=== PATIENT | male | born 1950 | race Caucasian/White ===

== ENCOUNTER 2025-02-11 05:28 | Emergency (ER) | payer MEDICARE, BC, SELFPAY ==
[2025-02-11 05:36] VITALS: BP 180/106
[2025-02-11 06:10] VITALS: BP 176/88
[2025-02-11 06:20] VITALS: BMI 34.2
[2025-02-11 06:30] LABS: Hematocrit 42.9 % (39.0-52.0); Hemoglobin 15.5 g/dL (13.0-18.0); Mean Corp Hgb Conc. 36.1 g/dL (33.0-37.0); Mean Corpuscular Volume 85.1 fL (80.0-94.0); Nucleated Red Blood Cells % 0 % (-); Platelet Count 185 10^3/uL (130-400); Red Cell Dist. Width 11.7 % (11.5-14.5)
[2025-02-11 06:46] LABS: ALT (SGPT) 21 U/L (0-50); AST (SGOT) 20 U/L (17-59); Albumin 4.7 g/dl (3.5-5.0); Alkaline Phosphatase 79 U/L (38-126); Blood Urea Nitrogen 30 mg/dl (9-20); Calcium 9.9 mg/dl (8.4-10.2); Carbon Dioxide 24 mmol/L (22-30); Chloride 103 mmol/L (98-107); Estimated Creatinine Clearance 64 ml/min; Glucose 275 mg/dl (70-99); Lipase 96 U/L (23-300); Potassium 3.6 mmol/L (3.5-5.1); Sodium 135 mmol/L (135-145); Total Protein 6.9 g/dl (6.3-8.2); eGFR > 60.00
[2025-02-11 07:00] VITALS: BP 178/96
--- NOTE | 2025-02-11 07:00 | ED.GENMED ---
History of Present Illness
General
Chief Complaint: Abdominal Symptoms
Source: patient
Exam Limitations: none
Time Seen by Provider: 02/11/25 06:34
Nursing documentation reviewed up to this point in time: agreed with
History of Present Illness
History of Present Illness:
The patient is a 74-year-old man who reports that he ate a huge pork rib dinner yesterday at around 6 PM. Patient reports that he has been suffering severe nausea and pain in his upper abdomen ever since then. Patient reports he has not been
vomiting. He denies having a bowel movement since eating the meal. He denies fevers and chills. Patient reports severe pain in his upper mid abdomen. He denies chest pain and shortness of breath. He denies an abdominal surgical history.
Past History
Past History
ED Past Medical History: HTN
ED Past Surgical History: Other
Social History
Tobacco: Other
Alcohol: Other
Drug: None
Personal: Other
Living: other
Employment: Other
Family History
Family History: Other
Review of Systems
Review of Systems
Allergies reviewed?: Yes
All Other Systems: ROS reviewed and negative except as documented in HPI and ROS
Constitutional: Reports no symptoms
EENT: Reports no symptoms
Respiratory: Reports no symptoms
Cardiac: Reports no symptoms
ABD/GI: Reports abdominal pain and nausea
: Reports no symptoms
Musculoskeletal: Reports no symptoms
Skin: Reports no symptoms
Neurological: Reports no symptoms
Endocrine: Reports no symptoms
Hematologic/Lymphatic: Reports no symptoms
Psychiatric: Reports no symptoms
Phy Exam
Physical Exam
Physical Exam:
Physical Exam
General: No acute distress. Patient appears uncomfortable
Neck: supple. no meningeal signs. normal psoterior pharynx
Heart: s1/s2 regular rate and rhythm, no murmur. equal radial pulses.
Lungs: no acute respiratory distress. clear bilaterally
Abdomen: Normal bowel sounds. Epigastric tenderness. No rebound or guarding. No pulsatile mass
Neuro: alert and oriented. no focal neurological deficits
Skin: no rash
Psychiatric: well kept. interactive and cooperative
Extremities: no edema. no calf tenderness. negative homans. good distal pulses
Course
Orders/Labs/Results
Orders:
Orders
02/11/25 06:20
Complete Blood Count/With Diff Urgent
Comprehensive Metabolic Panel Urgent
Lipase Urgent
02/11/25 06:55
Electrocardiogram (*1) Urgent
Reason for Study: Abdominal Pain
EKG- Treatment ONCE
02/11/25 07:09
Morphine Sulfate 4 mg IV NOW STA
02/11/25 07:10
Ondansetron Injectable [Zofran] 4 mg IV NOW STA
02/11/25 07:14
CT Abd/pelvis W Iv Cont Urgent
Comment:
Reason For Exam: nausea, epig pain
02/11/25 08:09
US Abdomen Complete/Upper Urgent
Comment:
Reason For Exam: epig pain
02/11/25 08:12
Ketorolac [Toradol] 15 mg IV NOW STA
Abnormal Lab Results
02/11/25
06:20
WBC 14.7 H 10^3/uL
(4.8-10.8)
Abs Immat Gran (auto) 0.1 H 10^3/uL
(0-0.05)
Absolute Neuts (auto) 12.4 H 10^3/uL
(1.4-6.5)
Absolute Monos (auto) 0.9 H 10^3/uL
(0.1-0.6)
Immature Gran % 0.6 H %
(0-0.5)
Neutrophils % 84.3 H %
(42.2-75.2)
Lymphocytes % 8.4 L %
(20.5-51.1)
BUN 30 H mg/dl
(9-20)
Glucose 275 H mg/dl
(70-99)
02/11/25 06:20
02/11/25 06:20
Vital Signs
Initial and Last Documented VS:
Initial Vital Signs
Temp Pulse Resp BP Pulse Ox
98.8 F 84 20 180/106 97
02/11/25 05:36 02/11/25 05:36 02/11/25 05:36 02/11/25 05:36 02/11/25 05:36
Last Documented Vital Signs
Temp Pulse Resp BP Pulse Ox
98.8 F 79 17 161/63 93
02/11/25 05:36 02/11/25 10:30 02/11/25 10:30 02/11/25 08:06 02/11/25 10:30
MDM/Problems Addressed
Differential Diagnosis Includes:
Acute cholecystitis, acute pancreatitis, small bowel obstruction
MDM/Problems Addressed:
Patient presents with acute abdominal pain and nausea
Chronic conditions affecting care: HTN
Acute Exacerbation and/or Progression of Chronic Illness:
Patient is acutely hypertensive, likely due to discomfort.
*Radiology
Radiology exam reviewed: radiology read reviewed
*Pulse Oximetry
SaO2: 96
Oxygen Mode of Delivery: Room air
Patient hypoxic: no
Comment: 96% on room air
*EKG
Interpreted by ED Provider?: Yes
Interpretation: normal
Comparison EKG: no comparison EKG present
Rate: normal
Rhythm: sinus
[place]: normal axis
Interval: normal interval
QRS Pattern: normal QRS
Ischemia: no ischemia
*Bite Block Maker Interpretation
Rate: normal
Interpretation: normal
Rhythm: sinus
*Critical Care Note
Total Time (30-74mins, 75-104mins- exclusive of procedures): Not Applicable
Data Reviewed
Source: patient
Update Note
Update Note:
11:15 AM. Patient's imaging studies show gallstones without signs of acute cholecystitis. Patient reports his pain is so much better and he is happy to go home. Patient given crackers and manfred nereida. We will reassess him for another hour to make
sure his pain remains very low. If his pain intensifies again, we will reconsider admitting patient
12:00 PM patient reports his pain is still gone. He adamantly wants to go home. Patient understands that his pain could return with a fatty meal. He understands that if his pain is persistent or if he gets any fevers or chills, that he must come
back to the ED
ED Attending Note
-
Portions of this chart may have been created with voice recognition software.� Occasional wrong word or��sound alike� substitutions may have occurred due to the inherent limitations of voice recognition software.
Discharge Plan
Departure
Patient Disposition: Home (Routine Discharge)
Date of Disposition: 02/11/25
Time of Disposition: 11:57
Patient with high blood pressure during this ER visit?: Yes
Condition: Good
Covid-19: Not Applicable
Discharge Problem:
Colic, biliary
Instructions: Gallstones - ED discharge instructions, BLOOD PRESSURE
Referrals:
Trenton Glover DO [Family Provider]
Henry Lenz MD [Active, Surgical]
Activity Restrictions/Additional Instructions:
If your abdominal pain comes back, and becomes persistent, such as several hours long, or is associated with vomiting or fever, please come back to the emergency department.
If you experience bouts of pain and feel that it may be time to discuss getting your gallbladder removed, please follow-up with general surgery.
Interventions
Interventions:
*Risk Screen - Suicide Last Done: 02/11/25 05:36
*General Assessment Last Done: 02/11/25 05:36
*Neglect/Abuse Screening Last Done: 02/11/25 05:36
*ED- Fall Risk Assessment Last Done: 02/11/25 05:36
*ED COVID-19 Vaccine History Last Done: 02/11/25 05:36
YT-Cxptnz-Iszvkaszgs Assessment Last Done: 02/11/25 06:21
Discharge Date and Time
Print Language: SETSWANA
[2025-02-11] MEDS: MORPHINE SULFATE 4 MG IV (07:19)
[2025-02-11] MEDS: ZOFRAN 4 MG IV (07:20)
[2025-02-11 08:06] VITALS: BP 161/63
[2025-02-11] MEDS: TORADOL 15 MG IV (08:43)
[2025-02-11 11:56] VITALS: BP 163/68
[2025-02-11 13:08] VITALS: BP 163/68
== END 2025-02-11 12:30 | disposition home or self-care (01) ==
LOC: EMR 05:28
PROVIDERS: Emergency Medicine; EMERGENCY PHYSICIAN Emergency Medicine; FAMILY PHYSICIAN Internal Medicine
DX: K80.50 Calculus of bile duct without cholangitis or cholecystitis without obstruction (principal)
CPT/HCPCS: 99284; 96374; 96375; 74177; 76700; 80053; 83690; 85025; 93005; Q9967

== ENCOUNTER 2025-02-12 19:41 | Inpatient (IN) | payer MEDICARE, BC, SELFPAY ==
[2025-02-12 16:09] VITALS: BP 137/74
--- NOTE | 2025-02-12 17:43 | ED.GENMED ---
History of Present Illness
General
Chief Complaint: Abdominal Pain
Source: patient and family
Exam Limitations: none
Time Seen by Provider: 02/12/25 17:41
Nursing documentation reviewed up to this point in time: agreed with
History of Present Illness
History of Present Illness:
74-year-old male with known cholelithiasis who presents to the emergency department for evaluation of intractable upper abdominal pain, now with fever. Patient was seen in the emergency department yesterday where he was diagnosed with gallstones
however symptoms seemed to improve and he had no ultrasound findings indicating acute cholecystitis and he was discharged home. However�patient states in the middle the night he was woken again by extreme pain in his upper abdomen. He reports
constant pain since associated with nausea. He also had a temperature of 101F at home earlier today. He did take some Motrin.
Patient states he had a few sips of water, a boiled egg, and some oatmeal today.
He denies any chest pain, shortness of breath, dysuria.
Patient is on any blood thinners.
Past History
Past History
ED Past Medical History: HTN
ED Past Surgical History: Other
Social History
Tobacco: Other
Alcohol: Other
Drug: None
Personal: Other
Living: other
Employment: Other
Family History
Family History: Other
Review of Systems
Review of Systems
Allergies reviewed?: Yes
All Other Systems: ROS reviewed and negative except as documented in HPI and ROS
Phy Exam
Physical Exam
Physical Exam:
Vitals: Tachycardic, otherwise vital signs stable. Temp 100.1
General: Patient is in no acute distress
Skin: Warm and dry, no rashes or lesions
Head: Normocephalic, atraumatic
Eyes: Sclera nonicteric. EOMs intact. No nystagmus.
Throat: Protecting airway
Neck: Normal ROM, no cervical spine tenderness, no meningismus
Cardiac: Tachycardic, normal rhythm. No murmurs
Pulm: Normal respiratory effort, no wheezes, rales, rhonchi heard on exam
Abdomen: Mildly distended. Abdomen soft. Moderate tenderness in epigastric/right upper quadrant. Negative Mora sign. No tenderness in lower abdomen.
Extremities: No evidence of cyanosis or edema. Palpable DP pulses bilaterally
Neuro: AAOx3. Grossly intact.
Psychiatric: Normal affect.
Course
Orders/Labs/Results
Orders:
Orders
02/12/25 17:58
0.9% Sodium Chloride 1000 ml [Nss] 1,000 ml IV BOLUS
Ketorolac [Toradol] 15 mg IV NOW STA
Ondansetron Injectable [Zofran] 4 mg IV NOW STA
02/12/25 18:09
Comprehensive Metabolic Panel Urgent
Lipase Urgent
Blood Culture Q30M
FREDERIC Source: Blood/Venous
Specimen Description:
Blood Culture Q30M
FREDERIC Source: Blood/Venous
Specimen Description:
02/12/25 18:10
Complete Blood Count/With Diff Urgent
Lactic Acid Q4H
Comment: CANCEL 2nd LACTIC ACID IF 1st LACTIC ACID IS LESS THAN 2
02/12/25 18:33
Acetaminophen [Tylenol] 650 mg PO NOW STA
02/12/25 18:53
Piperacillin/Tazo 3.375 Gram [Zosyn] 3.375 gram in 50 ml IV NOW
02/12/25 19:06
HYDROmorphone [Dilaudid] 0.5 mg IV NOW STA
02/12/25 22:00
Lactic Acid Q4H
Comment: CANCEL 2nd LACTIC ACID IF 1st LACTIC ACID IS LESS THAN 2
Abnormal Lab Results
02/12/25 02/12/25
18:09 18:10
WBC 21.5 H 10^3/uL
(4.8-10.8)
Abs Immat Gran (auto) 0.1 H 10^3/uL
(0-0.05)
Absolute Neuts (auto) 17.9 H 10^3/uL
(1.4-6.5)
Absolute Monos (auto) 2.0 H 10^3/uL
(0.1-0.6)
Immature Gran % 0.7 H %
(0-0.5)
Neutrophils % 83.0 H %
(42.2-75.2)
Lymphocytes % 6.7 L %
(20.5-51.1)
Sodium 130 L mmol/L
(135-145)
Potassium 3.3 L mmol/L
(3.5-5.1)
Chloride 97 L mmol/L
(98-107)
Glucose 299 H mg/dl
(70-99)
Total Bilirubin 1.8 H mg/dl
(0.2-1.3)
02/12/25 18:10
02/12/25 18:09
Vital Signs
Initial and Last Documented VS:
Initial Vital Signs
Temp Pulse Resp BP Pulse Ox
100.1 F 118 16 137/74 96
02/12/25 16:09 02/12/25 16:09 02/12/25 16:09 02/12/25 16:09 02/12/25 16:09
Last Documented Vital Signs
Temp Pulse Resp BP Pulse Ox
100.6 F H 98 16 137/74 96
02/12/25 18:30 02/12/25 18:30 02/12/25 16:09 02/12/25 16:09 02/12/25 18:07
MDM/Problems Addressed
Differential Diagnosis Includes:
Not limited to: Acute cholecystitis, choledocholithiasis, biliary colic, cholangitis, sepsis, pancreatitis, etc.
MDM/Problems Addressed:
74-year-old male with known gallstones who presents with intractable upper abdominal pain now with fever. Patient discharged from the emergency department yesterday after suspected biliary colic however pain returned last night and he spiked a
fever this morning. No episodes of vomiting, chest pain, shortness of breath. Patient tachycardic on arrival with temp of 100.6F. Otherwise vital signs are stable. Physical exam as above. Patient overall well-appearing. Abdomen mildly
distended however soft. Tenderness noted in epigastric/right upper quadrant. No rebound tenderness or guarding. I did review labs and ultrasound that performed yesterday in the emergency department. Ultrasound shows cholelithiasis without any
evidence of acute cholecystitis. Given intractable pain and new onset fever�concern for acute cholecystitis. Will plan to redraw labs, check lactic and send blood cultures. Will treat pain and give IV fluids. Will closely monitor and reassess.
Update: Labs reviewed. White count of 21.5 which is increased from 14.5 yesterday. Chemistry reveals mild hyponatremia and hypokalemia with a mild elevation in total bilirubin to 1.8. Otherwise LFTs normal. Lactic acid normal. Physical exam and
lab work consistent with acute cholecystitis. Patient started on Zosyn in emergency department. Case discussed with general surgeon who does not feel repeat ultrasound indicated at this time. Per general surgery�plan will be to admit to medicine
with repeat labs in the a.m. and possible OR tomorrow. Patient excepted to hospitalist service in stable condition.
Chronic conditions affecting care:
Cholelithiasis
Acute Exacerbation and/or Progression of Chronic Illness:
Acute cholecystitis
*Pulse Oximetry
SaO2: 96
Oxygen Mode of Delivery: Room air
Patient hypoxic: no
*EKG
Interpreted by ED Provider?: NA
*It Security Administrator Interpretation
Rate: It Security Administrator- N/A
*Critical Care Note
Total Time (30-74mins, 75-104mins- exclusive of procedures): Not Applicable
Data Reviewed
Review of Other/Old Records Reveals: Labs (Labs performed yesterday 03/10/2025 which reveal leukocytosis however no transaminitis or elevation in total bilirubin.) and Radiology Studies (Ultrasound performed 02/11/2025 which reveals cholelithiasis
without evidence of acute cholecystitis)
Further Testing Considered But Not Given:
Considered repeat abdominal ultrasound however patient picture clinically consistent with acute cholecystitis�after discussion with general surgery do not feel indicated
Patient Management
Discussion with other providers: Hospitalist and [employer] Consultant (Case discussed with general surgery)
Escalation/DeEscalation of care consider admission/obs:
Admit for IV antibiotics, repeat labs, possible cholecystectomy with general surgery
ED Attending Note
-
Portions of this chart may have been created with voice recognition software.� Occasional wrong word or��sound alike� substitutions may have occurred due to the inherent limitations of voice recognition software.
Discharge Plan
Departure
Patient Disposition: Admit
Date of Disposition: 02/12/25
Time of Disposition: 18:53
Presentation/result/management discussed w/ accepting MD/DO: Hospitalist
Discharge Problem:
Acute cholecystitis
Prescriptions:
No Action
valsartan-hydrochlorothiazide 160-25 mg tablet
1 tab PO DAILY
ibuprofen [Advil] 200 mg Tablet
400 mg PO DAILYPRN PRN (Reason: mild pain)
Referrals:
Trenton Glover DO [Family Provider]
Interventions
Interventions:
*Risk Screen - Suicide Last Done: 02/12/25 16:09
*General Assessment Last Done: 02/12/25 16:09
*Neglect/Abuse Screening Last Done: 02/12/25 16:09
*ED- Fall Risk Assessment Last Done: 02/12/25 18:28
AG-Xckxta-Ynjhyupejc Assessment Last Done: 02/12/25 18:27
Discharge Date and Time
Print Language: [place]
[2025-02-12] MEDS: NSS 1000 IV (18:26)
[2025-02-12] MEDS: TORADOL 15 MG IV (18:26)
[2025-02-12 18:27] VITALS: BMI 28.4
[2025-02-12] MEDS: ZOFRAN 4 MG IV (18:27)
[2025-02-12 18:28] LABS: Hematocrit 44.6 % (39.0-52.0); Hemoglobin 16.3 g/dL (13.0-18.0); Mean Corp Hgb Conc. 36.5 g/dL (33.0-37.0); Mean Corpuscular Volume 83.1 fL (80.0-94.0); Nucleated Red Blood Cells % 0 % (-); Platelet Count 176 10^3/uL (130-400); Red Cell Dist. Width 11.9 % (11.5-14.5)
[2025-02-12 18:42] LABS: ALT (SGPT) 20 U/L (0-50); AST (SGOT) 18 U/L (17-59); Albumin 4.4 g/dl (3.5-5.0); Alkaline Phosphatase 62 U/L (38-126); Blood Urea Nitrogen 20 mg/dl (9-20); Calcium 9.6 mg/dl (8.4-10.2); Carbon Dioxide 24 mmol/L (22-30); Chloride 97 mmol/L (98-107); Estimated Creatinine Clearance 77 ml/min; Glucose 299 mg/dl (70-99); Lipase 49 U/L (23-300); Potassium 3.3 mmol/L (3.5-5.1); Sodium 130 mmol/L (135-145); Total Protein 6.7 g/dl (6.3-8.2); eGFR > 60.00
[2025-02-12] MEDS: TYLENOL 650 MG PO (19:27)
[2025-02-12] MEDS: DILAUDID 0.5 MG IV (19:27)
[2025-02-12] MEDS: ZOSYN 50 IV (19:27)
--- NOTE | 2025-02-12 19:31 | HPS.HSE ---
Family Physician
-
Family Physician: Trenton Glover
Chief Complaint
-
Abd Pain
History of Present Illness
Patient is a 74y M with PMH significant for hypertension who presents to ED complaining of abdominal pain. Patient states that he started with abdominal pain Saturday evening around 7:30. He had epigastric abdominal pain with nausea and no
vomiting. He presented to the ED early in the morning on . Evaluation at that time showed gallstones without fever, abnormal LFTs or imaging evidence of cholecystitis. Patient felt improved and returned to home.
Unfortunately his pain returned today and increased in severity. Patient returned to the ED for evaluation.
Today he is febrile to 100.6 and his bilirubin is increased at 1.8.
Medical History
Past Medical History
Past Medical History: Reports Other
Additional Past Medical History:
Hypertension
Diet-Controlled DM-II
Past Surgical History: Reports Other
Additional Past Surgical History:
Left Inguinal Herniorrhaphy
Social History
Tobacco: Former Smoker (Quit smoking 30 years ago. )
Alcohol: Occasional
Drug: None
Family History
Family History: Not pertinent
Allergies / Home Medications
Allergies reflects when Allergies were last updated in [facility].
Home Medications with original date entered in [facility]
Allergy/Medication List:
Allergies
Allergy/AdvReac Type Severity Reaction Status Date / Time
No Known Allergies Allergy Verified 02/12/25 16:09
Home Medications
ibuprofen 200 mg tablet (Advil) 400 mg PO DAILYPRN PRN mild pain 02/12/25
valsartan 160 mg-hydrochlorothiazide 25 mg tablet 1 tab PO DAILY 02/12/25
Review of Systems
-
History Source: Patient
A 12 point ROS was completed and negative except as noted: Yes
Constitutional: Denies Fever, Fatigue or Chills
Respiratory: Denies Cough or Trouble Breathing
Cardiac: Denies Chest Pain or Palpitations
Abdomen/GI: Reports Abdominal Pain and Nausea; Denies Vomiting, Diarrhea, Bloody Stools or Black Stools
: Denies Dysuria or Frequency
Musculoskeletal: Denies Joint Pain or Edema
Neurological: Denies Dizzy or Headache
Psych: Denies Depression or Anxiety
Physical Exam
Vital Signs
Vital Signs
Temp Pulse Resp BP Pulse Ox
100.6 F H 98 16 137/74 96
02/12/25 18:30 02/12/25 18:30 02/12/25 16:09 02/12/25 16:09 02/12/25 18:07
Physical Exam
General: Other (74y M in no acute distress.)
HEENT: Moist mucous membranes and PERRLA
Respiratory: Clear; No Wheezes, Rales or Rhonchi
Cardiac: S1/S2 and Regular Rhythm; No Murmur
GI: Other (Softly distended. Pos BS. Pos epigastric and RUQ tenderness.)
Musculoskeletal: No Clubbing, No Cyanosis and No Edema
Neuro: AO x 3
Laboratory Results
-
02/12/25 18:10
02/12/25 18:09
Laboratory Results
Lactic Acid 1.2 mmol/L (0.7-2.0) 02/12/25 18:10
Total Bilirubin 1.8 mg/dl (0.2-1.3) H 02/12/25 18:09
AST 18 U/L (17-59) 02/12/25 18:09
ALT 20 U/L (0-50) 02/12/25 18:09
Alkaline Phosphatase 62 U/L (38-126) 02/12/25 18:09
Lipase 49 U/L (23-300) 02/12/25 18:09
Impression/Plan
-
A/P: Patient is a 74y M with PMH significant for hypertension and DM-II who presents to ED complaining of abdominal pain.
Acute Calculous Cholecystitis
Sepsis secondary to the above
- Admit for further evaluation and treatment.
- Patient presents with fever, leukocytosis, tachycardia and imaging showing gallstones (02/11).
- Continue IV abx. IVFs, pain control, antiemetics.
- Surgery evaluation for additional recommendations / probable cholecystectomy.
- Follow for any new / worsening symptoms.
Hyponatremia
Hypokalemia
- Mild. Likely secondary to HCTZ.
- Hold / stop HCTZ.
- IVF replacement and follow for improvement.
Benign Hypertension
- Stable. Continue valsartan with holding parameters.
- Hold HCTZ acutely.
Diet-Controlled DM-II
- Stable. Not on any medications.
- Follow glucose and cover with SSI as needed.
- Update A1C.
DVT Prophylaxis: SCDs
Code Status: Full
[2025-02-12 20:50] VITALS: BP 112/54; BMI 33.2
--- NOTE | 2025-02-12 20:50 | PTCARENOTE ---
Patient arrived from ED to [address] [place] [address]. AAOx3, accompanied by daughter. Pt very pleasant and reports abdominal pain minimal at this time. VSS, plan of care explain to patient and daughter, all questions answered. Assessment on going.
[2025-02-12] MEDS: LR 1000 IV (21:08)
[2025-02-12 23:00] VITALS: BP 103/58
[2025-02-12 23:39] LABS: Glucose - Point of Care 211 mg/dl (70-99)
[2025-02-12] MEDS: NOVOLOG FLEXPEN-LOW RESISTANCE 300 UNITS SC (23:43)
[2025-02-13] VITALS (12 sets, daily range): BP systolic 0–139; BP diastolic 45–70
[2025-02-13] MEDS: ZOSYN 50 IV ×4 (01:54→20:14)
[2025-02-13 06:11] LABS: Glucose - Point of Care 172 mg/dl (70-99)
[2025-02-13] MEDS: NOVOLOG FLEXPEN-LOW RESISTANCE 300 UNITS SC (06:14)
[2025-02-13 07:05] LABS: Hematocrit 39.7 % (39.0-52.0); Hemoglobin 14.0 g/dL (13.0-18.0); Mean Corp Hgb Conc. 35.3 g/dL (33.0-37.0); Mean Corpuscular Volume 85.9 fL (80.0-94.0); Platelet Count 149 10^3/uL (130-400); Red Cell Dist. Width 11.9 % (11.5-14.5)
[2025-02-13 07:24] LABS: ALT (SGPT) 67 U/L (0-50); AST (SGOT) 53 U/L (17-59); Albumin 3.4 g/dl (3.5-5.0); Alkaline Phosphatase 70 U/L (38-126); Blood Urea Nitrogen 18 mg/dl (9-20); Calcium 8.7 mg/dl (8.4-10.2); Carbon Dioxide 27 mmol/L (22-30); Chloride 101 mmol/L (98-107); Estimated Creatinine Clearance 63 ml/min; Glucose 179 mg/dl (70-99); Potassium 3.2 mmol/L (3.5-5.1); Sodium 136 mmol/L (135-145); Total Protein 5.5 g/dl (6.3-8.2); eGFR > 60.00
--- NOTE | 2025-02-13 07:51 | CON.GS ---
Medical History
-
Chief Complaint: RUQ pain
History of Present Illness:
Patient is a 74 yo M with a PMH of obesity, HTN, diet-controlled diabetes, and s/p open LEFT inguinal hernia repair with mesh years ago. Mr. Milan initially presented to on 02/11/2025 with epigastric and RUQ abdominal pain. He reports that his
symptoms began acutely Saturday evening after having ribs. He was diagnosed with cholelithiasis. His symptoms improved and he opted for discharge with outpatient management. He represented to the ER on 02/12 with recurrent abdominal pain.
Currently he states that his pain is mildly improved but persistent in the epigastric and RUQ region. He denies any nausea or vomiting. Febrile. He denies any jaundice, pale stools, or tea colored urine. He denies any prior attacks of abdominal
pain or discomfort. He does states that he has had some reflux issues over the past several weeks. Family history notable for a daughter postcholecystectomy.
Past Medical History
Past Medical History: HTN and NIDDM
Past Surgical History: Hernia Repair (Open LEFT inguinal hernia)
Social History
Tobacco: Non-Smoker
Alcohol: Occasional
Drug: None
Family History
Family History: Other (Daughter cholecystectomy)
Allergies / Home Medications
Allergy/AdvReac Type Severity Reaction Status Date / Time
No Known Allergies Allergy Verified 02/12/25 16:09
�Medication �Instructions �Recorded �Confirmed �Type
ibuprofen 200 mg tablet (Advil) 400 mg PO DAILYPRN PRN mild pain 02/12/25 02/12/25 History
valsartan 160 1 tab PO DAILY Blood Pressure 02/12/25 02/12/25 History
mg-hydrochlorothiazide 25 mg tablet
Review of Systems
-
A 10 point review of systems was completed, and was negative except as per HPI.
Physical Exam
Vital Signs
Temp Pulse Resp BP Pulse Ox
97.9 F 71 16 103/58 97
02/12/25 23:00 02/12/25 23:00 02/12/25 23:00 02/12/25 23:00 02/12/25 23:00
02/12/25 02/13/25 02/14/25
06:59 06:59 06:59
Actual Weight 93.395 kg
Body Mass Index (BMI) 33.2
Lab Results
02/13/25 06:37
02/13/25 06:37
WBC 14.8 10^3/uL (4.8-10.8) H 02/13/25 06:37
Hgb 14.0 g/dL (13.0-18.0) 02/13/25 06:37
Hct 39.7 % (39.0-52.0) 02/13/25 06:37
Plt Count 149 10^3/uL (130-400) 02/13/25 06:37
Abs Immat Gran (auto) 0.1 10^3/uL (0-0.05) H 02/12/25 18:10
Neutrophils % 83.0 % (42.2-75.2) H 02/12/25 18:10
Physical Exam
General: Well Developed, Well Nourished and No Apparent Distress
HEENT: Normocephalic and Anicteric
Respiratory: Non Labored Respirations
Cardiac: Regular Rhythm
GI: Soft, Non Distended, Tender (RUQ, positive Mora's sign), Incisions (LEFT groin well healed) and Obese
Musculoskeletal: No Edema
Skin: Warm and Dry
Neuro: Nonfocal/Grossly Intact
Data Reviewed
-
CT Scan: Image Personally Visualized and interpreted and Report Reviewed by me
Ultrasound: Image Personally Visualized and interpreted and Report Reviewed by me
Labs: Labs Reviewed by me
Assessment / Plan
-
Patient is a 74 yo M p/w acute cholecystitis
The natural history and pathophysiology of biliary and stone disease was discussed. Anatomy was reviewed. Workup thus far including prior ultrasound, CT scan, and labs were reviewed. Labs notable for a significantly elevated WBC and mildly
elevated bilirubin. Options for management reviewed. Given his persistent symptoms and continued pain recommend cholecystectomy.
Plan for laparoscopic cholecystectomy with possible cholangiogram. The procedure itself, as well as the risks, benefits, and alternatives was discussed. Specifically, we discussed the risks of bleeding, infection, injury to surrounding structures
(bowel, bile ducts), CBD injury, need for open procedure. Typical postprocedure recovery including pain management, activity restrictions, and the 10 to 20% risks of fluctuations in GI function were discussed. All questions answered. Consent
signed.
-- Laparoscopic cholecystectomy with possible IOC
-- NPO, IVF
-- Antibiotics: Zosyn
-- Pain control: Tylenol and IV Dilaudid PRN
--- NOTE | 2025-02-13 07:57 | W.SUR.PREOP ---
Pre-Operative Surgical Note
-
I have examined this patient prior to the performance of the scheduled procedure.
The patient's condition is unchanged from the time of the current History and
Physical and the patient is able to undergo the scheduled procedure.
[2025-02-13] MEDS: LR 1000 IV ×2 (08:18→23:45)
[2025-02-13] MEDS: PROTONIX IV 40 MG IV (08:23)
[2025-02-13] MEDS: NSS (PRESERVATIVE FREE) 10 ML IV (08:23)
[2025-02-13] MEDS: DIOVAN 160 MG PO (08:23)
--- NOTE | 2025-02-13 10:20 | CM ---
Reviewed the chart notes and spoke with the patient's daughter at the bedside. Patient in the OR for aparoscopic cholecystectomy with possible IOC. The patient resides alone in a one story home with one step to enter. Per daughter, no DME/VN/SNF
in the past. Patient's pharmacy of choice is [facility]. CM continues to be available to patient/family and is monitoring medical plan for needs at discharge.
Plan: Discharge plans will depend on the patient's progress.
--- NOTE | 2025-02-13 10:40 | W.PN.HOSP.TC ---
Today's Communication/Plan
-
Monitor vitals
See plan
Status post surgery
Pain control
Clears for now, diet per surgery
Continue with antibiotics
Follow cultures
Assessment / Plan
Assessment / Plan
General: No acute distress
HEENT: Moist mucous membranes and PERRLA
Respiratory: Clear; No Wheezes, Rales or Rhonchi
Cardiac: S1/S2 and Regular Rhythm; No Murmur
GI: Soft, laparoscopic incision noted
Musculoskeletal: No Edema
Neuro: AO x 3
Acute Calculous Cholecystitis
Sepsis secondary to the above
- Patient presents with fever, leukocytosis, tachycardia and imaging showing gallstones (02/11).
- Continue IV abx. IVFs, pain control, antiemetics.
- Surgery following, status post laparoscopic cholecystectomy with IOC. Severely inflamed, necrotic, distended gallbladder with purulence.
Blood culture pending, continue with antibiotics
Hyponatremia
Hypokalemia
- Mild. Likely secondary to HCTZ.
- Hold / stop HCTZ.
- IVF replacement and follow for improvement.
Benign Hypertension
- Stable. Continue valsartan with holding parameters.
- Hold HCTZ acutely.
Diet-Controlled DM-II
- Stable. Not on any medications.
- Follow glucose and cover with SSI as needed.
- A1c 6.8
DVT Prophylaxis: SCDs
Code Status: Full
Anticipated Discharge: 24 - 48 hours
Subjective/Interval History
-
Date of Service: February 13, 2025
Denies nausea
Objective Data
-
Labs:
Laboratory Results
02/13/25
06:37
WBC 14.8 H
Hgb 14.0
Hct 39.7
Plt Count 149
Sodium 136
Potassium 3.2 L
Chloride 101
Carbon Dioxide 27
BUN 18
Creatinine 1.1
Glucose 179 H
Calcium 8.7
Total Bilirubin 1.4 H
AST 53
ALT 67 H
Alkaline Phosphatase 70
Vital Signs:
Vital Signs
Temp Pulse Resp BP Pulse Ox
99.8 F 82 16 139/67 94
02/13/25 07:30 02/13/25 07:30 02/13/25 07:30 02/13/25 08:23 02/13/25 07:30
--- NOTE | 2025-02-13 11:26 | W.IMMPOSTOP ---
Surgical Immed Post Op Note
-
Primary Surgeon: Ernie
Assisting Surgeon: Star
Pre-op Diagnosis: Acute cholecystitis
Post-op Diagnosis: Acute cholecystitis
Procedure Performed: Laparoscopic cholecystectomy with IOC
Anesthesia Type: General
Specimen / Cultures:
1. Gallbladder
Estimated Blood Loss: 23 cc
Complications: None
Operative Findings:
1. Severely inflamed, necrotic, distended GB with purulence
2. IOC with anatomy confirmed and no filling defects
3. Artery taken with clips, duct with clips and 0 PDS Endoloop
4. 19 Fr Kings drain into operative field
Plan:
-- Abd for 4 days post-op
-- DEWEY drain likely to be removed on DC
[2025-02-13 11:36] LABS: Glucose - Point of Care 220 mg/dl (70-99)
[2025-02-13] MEDS: KCL 270 MEQ IV (11:46)
[2025-02-13] MEDS: NOVOLOG vial 1 UNITS SC (11:49)
[2025-02-13 12:31] LABS: Glycohemoglobin (HgbA1c) 6.8 % (4.0-5.6)
--- NOTE | 2025-02-13 13:27 | PTCARENOTE ---
Patient returned to his room from PACU post laparoscopic cholecystectomy.The patient states that his pain is better.All incisions are open to air without drainage.Vital signs are stable.The patient is in his bed with the call garibay in reach.
[2025-02-13 14:31] LABS: Potassium 3.8 mmol/L (3.5-5.1)
[2025-02-13 17:17] LABS: Glucose - Point of Care 304 mg/dl (70-99)
[2025-02-13] MEDS: NOVOLOG FLEXPEN-LOW RESISTANCE SC (18:05)
[2025-02-13] MEDS: NOVOLOG FLEXPEN-LOW RESISTANCE 4 UNITS SC (18:05)
[2025-02-13] MEDS: LOVENOX 40 MG SC (18:06)
[2025-02-13] MEDS: TYLENOL 650 MG PO (20:36)
[2025-02-13] MEDS: LR IV (21:48)
[2025-02-13 21:54] LABS: Glucose - Point of Care 242 mg/dl (70-99)
[2025-02-14] MEDS: ZOSYN 50 IV ×4 (02:22→21:18)
[2025-02-14 03:02] VITALS: BP 111/60
[2025-02-14 05:55] LABS: Hematocrit 34.0 % (39.0-52.0); Hemoglobin 11.7 g/dL (13.0-18.0); Mean Corp Hgb Conc. 34.4 g/dL (33.0-37.0); Mean Corpuscular Volume 86.7 fL (80.0-94.0); Nucleated Red Blood Cells % 0 % (-); Platelet Count 125 10^3/uL (130-400); Red Cell Dist. Width 11.9 % (11.5-14.5)
[2025-02-14 06:26] LABS: ALT (SGPT) 90 U/L (0-50); AST (SGOT) 58 U/L (17-59); Albumin 3.0 g/dl (3.5-5.0); Alkaline Phosphatase 58 U/L (38-126); Blood Urea Nitrogen 14 mg/dl (9-20); Calcium 8.3 mg/dl (8.4-10.2); Carbon Dioxide 27 mmol/L (22-30); Chloride 106 mmol/L (98-107); Estimated Creatinine Clearance 69 ml/min; Glucose 177 mg/dl (70-99); Potassium 3.5 mmol/L (3.5-5.1); Sodium 137 mmol/L (135-145); Total Protein 4.9 g/dl (6.3-8.2); eGFR > 60.00
[2025-02-14 07:16] VITALS: BP 127/64
[2025-02-14 07:57] LABS: Glucose - Point of Care 151 mg/dl (70-99)
[2025-02-14] MEDS: TORADOL 10 MG IV (08:19)
[2025-02-14] MEDS: NSS (PRESERVATIVE FREE) 10 ML IV (08:20)
[2025-02-14] MEDS: PROTONIX IV 40 MG IV (08:20)
[2025-02-14] MEDS: MIRALAX 17 GRAMS PO (08:20)
[2025-02-14] MEDS: DIOVAN 160 MG PO (08:20)
[2025-02-14] MEDS: FLUSH (NSS) 5 FLUSH IV (08:21)
[2025-02-14] MEDS: NOVOLOG FLEXPEN-LOW RESISTANCE 1 UNITS SC ×2 (08:25→17:24)
--- NOTE | 2025-02-14 09:11 | W.PN.GS2 ---
Today's Communication / Plan
-
-- Regular diet
-- DC IVF
-- Antibiotics: Zosyn, plan for 4 days postoperative antibiotics
-- Home meds, DM control per Hospitalist
-- Tentative plan for DC tomorrow
Assessment / Plan
-
Patient is a 74 yo M p/w acute cholecystitis
POD#1 s/p laparoscopic cholecystectomy with IOC
AVSS
Labs notable for normalized WBC, mild drift in Hb, normal electrolytes and renal function, normalized bilirubin, mild ALT elevation
Recovering well. No postoperative concerns. Plan to monitor in hospital setting for an additional 24 hours for diabetic control, IV antibiotics, and drain management. Tentative plan for discharge tomorrow from a surgical perspective.
-- Regular diet
-- DC IVF
-- Pain control: Tylenol, Toradol, Oxycodone
-- Antibiotics: Zosyn, plan for 4 days postoperative antibiotics
-- Home meds, DM control per Hospitalist
-- DVT: Lovenox
-- Tentative plan for DC tomorrow
Subjective Data
-
Date of Service: February 14, 2025
No complaints. Feels well. Pain well controlled. No nausea or emesis. Passing flatus, no BM. No fevers.
Objective Data
-
Intake and Output
02/13/25 02/14/25 02/15/25
06:59 06:59 06:59
Intake Total 214 / 214
Output Total 60 / 60
Balance 2083
Intake:
Oral fluids 774 / 774
IV fluids (Total) 1100 / 1100
Normosol 300 / 300
IV piggybacks 270 / 270
Output:
Drain Output (Total) 60 / 60
Right Middle Abdomen Jim- 60 / 60
Michele A
Other:
Number of approximated MODERATE 3
amounts of urine
Number of approximated LARGE 2
amounts of urine
How many times incontinent 3
MODERATE amount urine
Vital Signs
Temp Pulse Resp BP Pulse Ox
98.6 F 68 17 127/64 98
02/14/25 07:16 02/14/25 07:16 02/14/25 07:16 02/14/25 08:20 02/14/25 07:16
Lab Results
02/14/25 05:43
02/14/25 05:43
Calcium 8.3 mg/dl (8.4-10.2) L 02/14/25 05:43
Total Bilirubin 1.0 mg/dl (0.2-1.3) 02/14/25 05:43
Direct Bilirubin 0.5 mg/dl (0.0-0.4) H 02/13/25 06:37
AST 58 U/L (17-59) 02/14/25 05:43
ALT 90 U/L (0-50) H 02/14/25 05:43
Alkaline Phosphatase 58 U/L (38-126) 02/14/25 05:43
Total Protein 4.9 g/dl (6.3-8.2) L 02/14/25 05:43
Albumin 3.0 g/dl (3.5-5.0) L 02/14/25 05:43
Physical Exam
-
Gen: NAD
Abd: soft, NT, ND, non-peritoneal, incisions c/d/i - no erythema, ecchymosis or drainage, DEWEY serosang
[2025-02-14 11:05] VITALS: BP 128/62
--- NOTE | 2025-02-14 11:06 | W.PN.HOSP.TC ---
Today's Communication/Plan
-
Monitor vital signs
see plan
Continue with antibiotics
Monitor drain output
Continue with valsartan
Assessment / Plan
Assessment / Plan
General: No acute distress
HEENT: Moist mucous membranes and PERRLA
Respiratory: Clear; No Wheezes, Rales or Rhonchi
Cardiac: S1/S2 and Regular Rhythm; No Murmur
GI: Soft, laparoscopic incision noted
Musculoskeletal: No Edema
Neuro: AO x 3
Acute Calculous Cholecystitis
Sepsis secondary to the above
- Patient presents with fever, leukocytosis, tachycardia and imaging showing gallstones (02/11).
- Continue IV abx. IVFs, pain control, antiemetics.
- Surgery following, status post laparoscopic cholecystectomy with IOC. Severely inflamed, necrotic, distended gallbladder with purulence.
Blood culture NGTD, continue with antibiotics
Monitor drain
Hyponatremia
Hypokalemia
- Mild. Likely secondary to HCTZ.
- Hold / stop HCTZ.
- IVF replacement and follow for improvement.
Benign Hypertension
- Stable. Continue valsartan with holding parameters.
- Hold HCTZ acutely.
Diet-Controlled DM-II
- Not on any medications.
- Follow glucose and cover with SSI as needed.
- A1c 6.8
DVT Prophylaxis: Lovenox
Code Status: Full
Anticipated Discharge: Within 24 hours
Subjective/Interval History
-
Date of Service: February 14, 2025
denies nausea
Objective Data
-
Labs:
Laboratory Results
02/14/25
05:43
WBC 10.4
Hgb 11.7 L
Hct 34.0 L
Plt Count 125 L
Sodium 137
Potassium 3.5
Chloride 106
Carbon Dioxide 27
BUN 14
Creatinine 1.0
Glucose 177 H
Calcium 8.3 L
Total Bilirubin 1.0
AST 58
ALT 90 H
Alkaline Phosphatase 58
Vital Signs:
Vital Signs
Temp Pulse Resp BP Pulse Ox
98.6 F 68 17 127/64 98
02/14/25 07:16 02/14/25 07:16 02/14/25 07:16 02/14/25 08:20 02/14/25 07:16
I&O
02/13/25 02/14/25 02/15/25
06:59 06:59 06:59
Intake Total 2143 / 2143 660 / 660
Output Total 60 / 60 20 / 20
Balance 2083 / 2083 640 / 640
[2025-02-14 12:02] LABS: Glucose - Point of Care 203 mg/dl (70-99)
[2025-02-14] MEDS: NOVOLOG FLEXPEN-LOW RESISTANCE 2 UNITS SC (12:44)
[2025-02-14 15:00] VITALS: BP 137/68
[2025-02-14 17:18] LABS: Glucose - Point of Care 182 mg/dl (70-99)
[2025-02-14] MEDS: LOVENOX 40 MG SC (17:23)
[2025-02-14] MEDS: LR IV (17:28)
[2025-02-14 21:23] LABS: Glucose - Point of Care 195 mg/dl (70-99)
[2025-02-14 23:11] VITALS: BP 135/59
[2025-02-15] MEDS: ZOSYN 50 IV ×2 (02:57→08:09)
[2025-02-15 07:23] VITALS: BP 151/80
[2025-02-15 08:03] LABS: Hematocrit 36.3 % (39.0-52.0); Hemoglobin 12.3 g/dL (13.0-18.0); Mean Corp Hgb Conc. 33.9 g/dL (33.0-37.0); Mean Corpuscular Volume 88.3 fL (80.0-94.0); Nucleated Red Blood Cells % 0 % (-); Platelet Count 160 10^3/uL (130-400); Red Cell Dist. Width 11.9 % (11.5-14.5)
[2025-02-15 08:08] LABS: Glucose - Point of Care 164 mg/dl (70-99)
[2025-02-15] MEDS: NOVOLOG FLEXPEN-LOW RESISTANCE 1 UNITS SC (08:09)
[2025-02-15] MEDS: DIOVAN 160 MG PO (08:09)
[2025-02-15] MEDS: NSS (PRESERVATIVE FREE) 10 ML IV (08:11)
[2025-02-15] MEDS: MIRALAX PO ×2 (08:11→08:24)
[2025-02-15] MEDS: PROTONIX IV 40 MG IV (08:12)
[2025-02-15 08:40] LABS: ALT (SGPT) 80 U/L (0-50); AST (SGOT) 37 U/L (17-59); Albumin 3.4 g/dl (3.5-5.0); Alkaline Phosphatase 65 U/L (38-126); Blood Urea Nitrogen 16 mg/dl (9-20); Calcium 8.7 mg/dl (8.4-10.2); Carbon Dioxide 28 mmol/L (22-30); Chloride 107 mmol/L (98-107); Estimated Creatinine Clearance 63 ml/min; Glucose 174 mg/dl (70-99); Potassium 3.4 mmol/L (3.5-5.1); Sodium 140 mmol/L (135-145); Total Protein 5.5 g/dl (6.3-8.2); eGFR > 60.00
--- NOTE | 2025-02-15 09:29 | W.PN.GS2 ---
Today's Communication / Plan
-
Plan:
- Dispo: discharge to home today w PO pain meds & abx
- Antibiotics: Zosyn day 2/2 today; switch to PO augmentin for 2 more days for 4-day total course
- Regular diet
- Remove DEWEY drain today
- Pain control: Tylenol, Toradol, Oxycodone
- Home meds, DM control per Hospitalist
- DVT: Lovenox
Assessment / Plan
-
Patient is a 74 yo M with a hx of HTN & DM-II who p/w acute cholecystitis, now POD#2 s/p laparoscopic cholecystectomy with IOC now with improved pain & tolerating PO solids well.
AVSS. WBC normal, normal electrolytes and renal function, slight Hgb drift expected post-op, normalized bilirubin & AST, mild ALT elevation. Glucose trending downward. Recovering well post-op with no concerns. Given necrosis/purulence of gallbladder
prior to removal, plan to finish out 4 day course of abx (transition to PO). Stable for dispo from surgical perspective.
Plan:
- Regular diet
- Pain control: Tylenol, Toradol, Oxycodone
- Remove DEWEY drain today
- Antibiotics: Zosyn day 2/2; switch to PO augmentin for 2 more days for 4-day total course
- Home meds, DM control per Hospitalist
- DVT: Lovenox
- Dispo: discharge to home today w PO pain meds & abx
Time Spent
Total Time Spent with Patient (in minutes): 15
Subjective Data
-
Date of Service: February 15, 2025
Patient in good spirits this am, asking about discharge. Denies any pain, n/v. Able to eat regular diet over last day. Having BMs & passing flatus.
Objective Data
-
Intake and Output
07/06/25 07/07/25 07/08/25
06:59 06:59 06:59
Intake Total 2143 / 2143 1949 / 1949 180 / 180
Output Total 40 / 40
Balance 2083 180 / 180
Intake:
Oral fluids 774 / 774 1500 / 1500 180 / 180
IV fluids (Total) 1100 / 1100 250 / 250
Normosol 300 / 300
IV piggybacks 270 / 270 200 / 200
Output:
Drain Output (Total) 40 / 40
Right Middle Abdomen Jim- 40 / 40
Michele A
Other:
Number of approximated MODERATE 3 2 1
amounts of urine
How many times incontinent 3
MODERATE amount urine
Vital Signs
Temp Pulse Resp BP Pulse Ox
98.4 F 69 18 151/80 99
02/15/25 07:23 02/15/25 08:09 02/15/25 07:23 02/15/25 08:09 02/15/25 07:23
Lab Results
02/15/25 06:26
02/15/25 06:26
Calcium 8.7 mg/dl (8.4-10.2) 02/15/25 06:26
Total Bilirubin 0.9 mg/dl (0.2-1.3) 02/15/25 06:26
Direct Bilirubin 0.5 mg/dl (0.0-0.4) H 02/13/25 06:37
AST 37 U/L (17-59) 02/15/25 06:26
ALT 80 U/L (0-50) H 02/15/25 06:26
Alkaline Phosphatase 65 U/L (38-126) 02/15/25 06:26
Total Protein 5.5 g/dl (6.3-8.2) L 02/15/25 06:26
Albumin 3.4 g/dl (3.5-5.0) L 02/15/25 06:26
Physical Exam
-
General: well-appearing, sitting on couch OOB
Cardiopulm: non-labored breathing
Abdominal: non-tender, non-distended, incision sites clean without drainage/erythema; DEWEY drain R abdomen with serosanguinous fluid
Patient has a tipton catheter: No
Patient has a central line: No
--- NOTE | 2025-02-15 10:23 | W.PN.HOSP.TC ---
Addendum entered and electronically signed by Joe Dupont MD 02/15/25 10:35:
Time of discharge 38 minutes
Original Note:
Today's Communication/Plan
-
monitor vitals
see plan
replete K
Discharged on p.o. antibiotics
Surgery follow-up outpatient
Assessment / Plan
Assessment / Plan
General: No acute distress
HEENT: Moist mucous membranes and PERRLA
Respiratory: Clear; No Wheezes, Rales or Rhonchi
Cardiac: S1/S2 and Regular Rhythm; No Murmur
GI: Soft, laparoscopic incision noted
Musculoskeletal: No Edema
Neuro: AO x 3
Acute Calculous Cholecystitis
Sepsis secondary to the above
- Patient presents with fever, leukocytosis, tachycardia and imaging showing gallstones (02/11).
- Continue IV abx. IVFs, pain control, antiemetics.
- Surgery following, status post laparoscopic cholecystectomy with IOC. Severely inflamed, necrotic, distended gallbladder with purulence.
Blood culture NGTD, continue with antibiotics, switch to p.o. antibiotics to complete course
Drain removed by surgery
Hyponatremia
Resolved
Hypokalemia
Replete potassium
Benign Hypertension
- Stable. Continue valsartan with holding parameters.
- Restart HCTZ
Diet-Controlled DM-II
- Not on any medications.
- Follow glucose and cover with SSI as needed.
- A1c 6.8
DVT Prophylaxis: Lovenox
Code Status: Full
Anticipated Discharge: Today
Subjective/Interval History
-
Date of Service: February 15, 2025
denies pain
Objective Data
-
Labs:
Laboratory Results
02/15/25
06:26
WBC 7.1
Hgb 12.3 L
Hct 36.3 L
Plt Count 160 D
Sodium 140
Potassium 3.4 L
Chloride 107
Carbon Dioxide 28
BUN 16
Creatinine 1.1
Glucose 174 H
Calcium 8.7
Total Bilirubin 0.9
AST 37
ALT 80 H
Alkaline Phosphatase 65
Vital Signs:
Vital Signs
Temp Pulse Resp BP Pulse Ox
98.4 F 69 18 151/80 99
02/15/25 07:23 02/15/25 08:09 02/15/25 07:23 02/15/25 08:09 02/15/25 07:23
I&O
02/14/25 02/15/25 02/16/25
06:59 06:59 06:59
Intake Total 2143 / 1949 180 / 180
Output Total 60 / 60 40 / 40
Balance 2083 180 / 180
--- NOTE | 2025-02-15 10:35 | W.DCSUMMARY ---
Discharge Summary
Discharge Data
Date of Admission: 02/12/25
Date of Discharge: 02/15/25
-
Pending Results: Yes
Hospital Course
74-year-old male with past medical history of diabetes, hypertension came to the hospital with sepsis secondary to acute calculus cholecystitis. Patient was seen by surgery throughout hospitalization. Patient was taken to the OR for laparoscopic
cholecystectomy. Patient was also put on initially on IV antibiotic which was later transitioned to p.o. antibiotics prior to discharge. He initially also had drain after the surgery which was removed prior to discharge. Once his symptoms
continue to improve and he was able to tolerate diet, he was then discharged home with instructions to follow-up with all his physicians outpatient.
Discharge Plan
-
Patient Disposition: Home (Routine Discharge)
Discharge Diagnosis/Procedures: Acute calculus cholecystitis
Sepsis secondary to cholecystitis
Hyponatremia
Hypokalemia
Diet: As tolerated
Additional Diets: If you have loose stools after surgery, eat a low fat diet
Activity: No strenuous activity
Additional Activity: Do not lift over 20lbs for the next 2-3 weeks
Bathing Restrictions: OK to Shower
Blood Work: CBC and BMP next week with primary care provider
Wound Care: Allow the glue over your incisions to flake off on its own over the next 2-3 weeks. Beneath the glue are dissolving sutures.
Cover the site where your drain was with dry gauze dressing and change daily until drainage no longer present, then ok to leave open to air.
Activity Restrictions/Additional Instructions:
Call your surgeon if you have nausea with vomiting, worsening pain or a fever >100.5
Referrals:
Tristian Klein MD [Active, Surgical] - in two to four weeks
Trenton Glover DO [Family Provider] - in less than 1 week
Prescriptions:
New
oxycodone 5 mg tablet
5 mg PO Q4HPRN PRN (Reason: breakthrough/severe pain) Qty: 5 0RF
amoxicillin-pot clavulanate 875-125 mg tablet
1 tab PO Q12 Qty: 5 0RF
acetaminophen [acetaminophen] 325 mg tablet
650 mg PO Q4HPRN PRN (Reason: mild pain) Qty: 1 0RF
polyethylene glycol 3350 17 gram Powder In Packet
17 g PO DAILY Qty: 0 0RF
Continued
valsartan-hydrochlorothiazide 160-25 mg tablet
1 tab PO DAILY
ibuprofen [Advil] 200 mg Tablet
400 mg PO DAILYPRN PRN (Reason: mild pain)
Discharge Orders:
Discharge Patient (As Directed); Ordered 02/15/25
Ordered By: Joe Dupont
Discharge Date and Time
Discharge Date/Time: 02/15/25 12:15
Print Language: CZECH
[2025-02-15] MEDS: KCL 20 MEQ PO (10:47)
--- NOTE | 2025-02-15 10:49 | CM ---
CM reviewed chart and noted dc order
Discussion with nursing and indep in room, drain pulled
Bedside meeting with pt and family member
No dc needs noted
IMM verbally reviewed-copy provided
Discharge Disposition- home, no needs, family transport
[2025-02-15 11:37] VITALS: BP 146/77
[2025-02-15 11:49] LABS: Glucose - Point of Care 177 mg/dl (70-99)
[2025-02-15] MEDS: NOVOLOG FLEXPEN-LOW RESISTANCE SC (11:55)
== END 2025-02-15 12:15 | disposition home or self-care (01) | DRG 854 ==
LOC: 2 SOUTH 19:41
PROVIDERS: Physician Assistant; ADMITTING PHYSICIAN Hospitalist; ATTENDING PHYSICIAN Internal Medicine; CONSULT PHYSICIAN Surgery; EMERGENCY PHYSICIAN Emergency Medicine; FAMILY PHYSICIAN Internal Medicine
PROC: 0FT44ZZ Resection of Gallbladder, Percutaneous Endoscopic Approach (ICD-10-PCS; 2025-02-13)
DX: A41.9 Sepsis, unspecified organism (principal); E87.1 Hypo-osmolality and hyponatremia; K80.00 Calculus of gallbladder with acute cholecystitis without obstruction; E87.6 Hypokalemia; I10 Essential (primary) hypertension; E11.9 Type 2 diabetes mellitus without complications
CPT/HCPCS: 74177; 74300; 76000; 76700; 80053; 82248; 82962; 83036; 83605; 83690; 84132; 85025; 85027; 87040; 88304; 93005; 96361; 96365; 96375; 99284; A4300; Q9967

== ENCOUNTER → 2025-04-27 08:37 | Outpatient (REF) | payer MEDICARE, BC, SELFPAY ==
[2025-04-27 11:07] LABS: Hematocrit 44.2 % (39.0-52.0); Hemoglobin 14.7 g/dL (13.0-18.0); Mean Corp Hgb Conc. 33.3 g/dL (33.0-37.0); Mean Corpuscular Volume 87.2 fL (80.0-94.0); Platelet Count 171 10^3/uL (130-400); Red Cell Dist. Width 13.3 % (11.5-14.5)
[2025-04-27 12:23] LABS: Blood Urea Nitrogen 23 mg/dl (9-20); Calcium 9.5 mg/dl (8.4-10.2); Carbon Dioxide 28 mmol/L (22-30); Chloride 102 mmol/L (98-107); Glucose 189 mg/dl (70-99); Potassium 4.7 mmol/L (3.5-5.1); Sodium 138 mmol/L (135-145); eGFR > 60.00
== END ==
LOC: SDSPAT 08:37
PROVIDERS: ATTENDING PHYSICIAN Surgery; FAMILY PHYSICIAN Internal Medicine
DX: Z01.818 Encounter for other preprocedural examination (principal)
CPT/HCPCS: 36415; 80048; 85027; 93005

== ENCOUNTER 2025-05-05 06:31 | Day surgery (SDC) | payer MEDICARE, BC, SELFPAY ==
[2025-04-27 14:03] VITALS: BMI 33.6
[2025-05-05] VITALS (8 sets, daily range): BP systolic 125–154; BP diastolic 55–77; BMI 33.6
[2025-05-05] MEDS: NORMOSOL-R/PLASMALYTE-A 1000 IV (08:15)
[2025-05-05 08:17] LABS: Glucose - Point of Care 173 mg/dl (70-99)
[2025-05-05] MEDS: TYLENOL 1000 MG PO (08:25)
[2025-05-05 11:30] LABS: Glucose - Point of Care 172 mg/dl (70-99)
== END 2025-05-05 13:00 | disposition home or self-care (01) ==
LOC: SDS 06:31
PROVIDERS: ATTENDING PHYSICIAN Surgery; FAMILY PHYSICIAN Internal Medicine
DX: K40.90 Unilateral inguinal hernia, without obstruction or gangrene, not specified as recurrent (principal)
CPT/HCPCS: 49650; 82962; C1781